=== PATIENT | male | born 1985 | race Caucasian/White ===

== ENCOUNTER 2017-08-05 22:00 | Emergency (ER) | payer MEDICAID ==
[~2017-08-05] VITALS: Ht 170.2 cm; Wt 83.9 kg
[~2017-08-05 22:00] MED LIST: BACTRIM DS 8001 TAB PO; BACTROBAN2% TP; CELEXA40 MG; FLEXERIL10 MG PO; FLOMAX 0.4MG C0.4 MG PO; HYDROCODONE/ACE1 TA5 PO; HYDROXYZINE50 MG PO; IBU-8800 MG PO; IBU800 M1 PO; IBUPROFEN800 MG PO; KEFLEX 500MG.500 MG PO; LAMICTAL100 MG PO; LORTAB 5/500 501 TAB PO; MEDROL 4MG. DOSE4 MG PO; NAPROSYN 500MG500 MG PO; NOMEDS *; PERCOCET 5/3251 EACH PO; PHENERGAN 25MG.25 M1 PO; SULFAMETHOXAZOL1 TA6 PO; TRAZODONE50 MG PO; TYLENOL W/CODEI1 TA2 PO; VICODIN 5/500 T1 TAB PO; [UNRECOGNIZED DRUG - REMARK] PO
--- OUTSIDE RECORDS SUMMARY | 2017-08-05 22:23 | External Medical Summary Rpt | CCD ---
Author Author AMBER Address Unknown Phone [email or web address] Purpose Continuity of Care Document - through 2016
--- OUTSIDE RECORDS SUMMARY | 2017-08-05 22:23 | External Medical Summary Rpt | CCD ---
Author Author AMBER Address Unknown Phone Purpose Continuity of Care Document - through 2016
--- OUTSIDE RECORDS SUMMARY | 2017-08-05 22:24 | External Medical Summary Rpt | CCD ---
Author Author [employer] Organization [employer] Address Unknown Phone Unavailable Purpose Continuity of Care Document - through 2016
--- OUTSIDE RECORDS SUMMARY | 2017-08-05 22:25 | External Medical Summary Rpt | CCD ---
Demographics Preferred Language Hungarian Marital Status Unknown Mandaeism Affiliation Unknown Race Unknown Ethnic Group Unknown Author Author , AMBER CLARK Address Unknown Phone Immunization Unable to retrieve immunization data due to connection failure with Immunization Registry. Please try again later.
--- OUTSIDE RECORDS SUMMARY | 2017-08-05 22:25 | External Medical Summary Rpt | CCD ---
Demographics Preferred Language Indonesian Marital Status Unknown Muslim Affiliation Unknown Race Unknown Ethnic Group Unknown Author Author , AMBER CLARK Address Unknown Phone Immunization Unable to retrieve immunization data due to connection failure with Immunization Registry. Please try again later.
--- OUTSIDE RECORDS SUMMARY | 2017-08-05 22:25 | External Medical Summary Rpt ---
Author Author AMBER Mendoza, [employer] Organization [employer] Address Unknown Phone Unavailable
--- NOTE | 2017-08-05 23:06 | Emergency Room Report ---
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 N Clinical Suspician of Infection? N Mental Status: 1 - Regular (Normal Baseline) Sepsis Risk:Low Sepsis Risk Have you (or family members/close friends) recently traveled outside the [place]? N If Yes, where/when: Have you had exposure to infectious disease within the past month? N TB? Other? Specify: Source patient, RN notes reviewed, family, old records Exam Limitations no limitations Comment fb rt index finger since last pm Cardiac Chest Pain Chest pain indicative of cardiac No Timing/Duration this evening Severity moderate ALLERGIES Coded Allergies: No Known Allergies (04/10/17) Home Medications Active Scripts Ibuprofen (Ibuprofen 800MG) 800 MG PO QIDP PRN pain #30 TAB Prov: 04/10/17 History Medical History General CAD? No Angina: No [place]: No Hypertension? No Hyperlipidemia? No CHF? No DVT? No PE? No COPD? No Asthma? No Anemia? No GERD? No Gastric ulcers? No GI Bleed? No Hernia? No Thyroid Problems? No Hypothyroidism? No CVA? No Seizures? No Diabetes? No Insulin Dependent: No Insulin Pump: No Home FSBS? No Renal Insuffiency? No End Stage Renal Disease? No UTI? No Stones? No BPH? No GB Disease: No Nephritic Syndrome? No Asplenia? No Hepatitis? No Sickle Cell Disease? No Arthritis? No Migraines? No Cataracts? No Glaucoma? No MRSA? No HIV? No TB? No Anxiety? No Depression? No Cancer? No More? Yes Additional hx: KIDNEY STONES Immunization Hx DT/Tetanus 04/2010 Surgical Hx Previous Surgery?Y JAW SURGERY R EAR Social History Smoking Hx Smoker: Current Every Day Smoker Tobacco: Yes Type Cigarettes Packs/day 1 1/2 - 2 Packs Are you/the child exposed to second-hand smoke: Yes Alcohol Alcohol: Yes Drugs none Review of Systems All Other Systems Reviewed and Negative Constitutional denies fever Eyes denies drainage ENT denies: ear pain, epistaxis, throat pain. Respiratory denies cough, denies shortness of breath, denies wheezing Cardiovascular denies chest pain, denies syncope Gastrointestinal denies diarrhea Genitourinary denies: dysuria, frequency. Musculoskeletal see HPI, denies back pain, denies joint pain, denies joint swelling, denies neck pain, other Skin see HPI, denies rash, other Psychiatric/Neurological denies headache, denies seizure Physical Exam Vital Signs Vital Signs Date Time Temp Pulse Resp B/P Pulse O2 O2 Flow FiO2 Ox Delivery Rate 08/057 98.1 71 18 110/77 96 - WBC >12,000 or <4,000 or 10% bands? 2 or more SIRS Criteria Met? B/P:110/77 MAP:88 Creatinine >2.0? UA output<0.5ml/kg/hr for 2 hrs? Platelet count >100,000? Lactate >2.0mmol/1? INR >1.2 or PTT > than 60 sec? Evidence of Organ Dysfunction? Provider documented clinical suspician of infection? N Sepsis Criteria Count: 0 Sepsis Risk: Low Sepsis Risk General Appearance no apparent distress Eye Exam - bilateral eye PERRL, bilateral eye EOMI Ear, Nose, Throat normal ENT inspection Neck supple Respiratory Status No: respiratory distress. 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 No Results/Orders Current Medication Orders Sig/Nick Start time Last Medication Dose Route Stop Time Status Admin Acetaminophen/ 0 .STK-MED ONE 08/05 2353 DC Codeine Phosphate PO Cephalexin 0 .STK-MED ONE 08/05 2353 DC Monohydrate PO Multi-Ingredient 0 .STK-MED ONE 08/05 2349 DC Ointment TP Acetaminophen/ 1 TONY ONCE ONE 08/05 2345 DC Codeine Phosphate PO 08/05 2346 Cephalexin 500 MG ONCE ONE 08/05 2345 DC Monohydrate PO 08/05 2346 Diphtheria/Pertussis/ 0.5 ML ONCE ONE 08/05 2345 DC Tetanus Vacc IM 11/04 2346 Lidocaine HCl 0 .STK-MED ONE 08/05 2309 DC .ROUTE Orders Procedure Date/time Status [id number] (INDEX)-3 VIEWS 08/05 2246 Active XRAY/CT/US XRAY/CT/US XRAY finger(s) XR interpretation by reviewed by me Xray Results abnormal (fb seen ) Procedures FB Removal (excluding Eyes) FB Removal Risks/benefits discussed with pt/guardian? Yes Location/Suspected object finger/metal Anesthesia Lidocaine 1% (digital block 4 ml) Foreign Body (Not Eyes) Remove Simple, Sterile dressing applied. No: Complicated, Probing, Incision & Search, Cerumen spatula used, Irrigation ml-. Risk of retained FB explained to pt/guardian? Yes Progress closed with 1 4o nylon stitch Departure Departure Time of Disposition 2351 Disposition DC Home or Self Care(routine) Clinical Impression Primary Impression: Foreign body Condition STABLE Referrals DENNYS CROOKS (Family) Patient Instructions DI for Laceration Repair Additional Instructions suture out in 7 days and recheck if any problems Discharge Counseling Counseled pt/family regarding diagnosis, test results, medications/RX, follow up needs Prescriptions Current Visit Scripts CEPHALEXIN (Keflex 500MG Capsule) 500 MG PO Q8H #21 CAP ED Critical Care Critical Care No at 2350
--- NOTE | 2017-08-05 23:06 | Emergency Room Report ---
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 N Clinical Suspician of Infection? N Mental Status: 1 - Regular (Normal Baseline) Sepsis Risk:Low Sepsis Risk Have you (or family members/close friends) recently traveled outside the [place]? N If Yes, where/when: Have you had exposure to infectious disease within the past month? N TB? Other? Specify: Source patient, RN notes reviewed, family, old records Exam Limitations no limitations Comment fb rt index finger since last pm Cardiac Chest Pain Chest pain indicative of cardiac No Timing/Duration this evening Severity moderate ALLERGIES Coded Allergies: No Known Allergies (04/10/17) Home Medications Active Scripts Ibuprofen (Ibuprofen 800MG) 800 MG PO QIDP PRN pain #30 TAB Prov: 04/10/17 History Medical History General CAD? No Angina: No [place]: No Hypertension? No Hyperlipidemia? No CHF? No DVT? No PE? No COPD? No Asthma? No Anemia? No GERD? No Gastric ulcers? No GI Bleed? No Hernia? No Thyroid Problems? No Hypothyroidism? No CVA? No Seizures? No Diabetes? No Insulin Dependent: No Insulin Pump: No Home FSBS? No Renal Insuffiency? No End Stage Renal Disease? No UTI? No Stones? No BPH? No GB Disease: No Nephritic Syndrome? No Asplenia? No Hepatitis? No Sickle Cell Disease? No Arthritis? No Migraines? No Cataracts? No Glaucoma? No MRSA? No HIV? No TB? No Anxiety? No Depression? No Cancer? No More? Yes Additional hx: KIDNEY STONES Immunization Hx DT/Tetanus 04/2010 Surgical Hx Previous Surgery?Y JAW SURGERY R EAR Social History Smoking Hx Smoker: Current Every Day Smoker Tobacco: Yes Type Cigarettes Packs/day 1 1/2 - 2 Packs Are you/the child exposed to second-hand smoke: Yes Alcohol Alcohol: Yes Drugs none Review of Systems All Other Systems Reviewed and Negative Constitutional denies fever Eyes denies drainage ENT denies: ear pain, epistaxis, throat pain. Respiratory denies cough, denies shortness of breath, denies wheezing Cardiovascular denies chest pain, denies syncope Gastrointestinal denies diarrhea Genitourinary denies: dysuria, frequency. Musculoskeletal see HPI, denies back pain, denies joint pain, denies joint swelling, denies neck pain, other Skin see HPI, denies rash, other Psychiatric/Neurological denies headache, denies seizure Physical Exam Vital Signs Vital Signs Date Time Temp Pulse Resp B/P Pulse O2 O2 Flow FiO2 Ox Delivery Rate 08/057 98.1 71 18 110/77 96 - WBC >12,000 or <4,000 or 10% bands? 2 or more SIRS Criteria Met? B/P:110/77 MAP:88 Creatinine >2.0? UA output<0.5ml/kg/hr for 2 hrs? Platelet count >100,000? Lactate >2.0mmol/1? INR >1.2 or PTT > than 60 sec? Evidence of Organ Dysfunction? Provider documented clinical suspician of infection? N Sepsis Criteria Count: 0 Sepsis Risk: Low Sepsis Risk General Appearance no apparent distress Eye Exam - bilateral eye PERRL, bilateral eye EOMI Ear, Nose, Throat normal ENT inspection Neck supple Respiratory Status No: respiratory distress. 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 No Results/Orders Current Medication Orders Sig/Nick Start time Last Medication Dose Route Stop Time Status Admin Acetaminophen/ 0 .STK-MED ONE 08/05 2353 DC Codeine Phosphate PO Cephalexin 0 .STK-MED ONE 08/05 2353 DC Monohydrate PO Multi-Ingredient 0 .STK-MED ONE 08/05 2349 DC Ointment TP Acetaminophen/ 1 TONY ONCE ONE 08/05 2345 DC Codeine Phosphate PO 08/05 2346 Cephalexin 500 MG ONCE ONE 08/05 2345 DC Monohydrate PO 08/05 2346 Diphtheria/Pertussis/ 0.5 ML ONCE ONE 08/05 2345 DC Tetanus Vacc IM 11/04 2346 Lidocaine HCl 0 .STK-MED ONE 08/05 2309 DC .ROUTE Orders Procedure Date/time Status [id number] (INDEX)-3 VIEWS 08/05 2246 Active XRAY/CT/US XRAY/CT/US XRAY finger(s) XR interpretation by reviewed by me Xray Results abnormal (fb seen ) Procedures FB Removal (excluding Eyes) FB Removal Risks/benefits discussed with pt/guardian? Yes Location/Suspected object finger/metal Anesthesia Lidocaine 1% (digital block 4 ml) Foreign Body (Not Eyes) Remove Simple, Sterile dressing applied. No: Complicated, Probing, Incision & Search, Cerumen spatula used, Irrigation ml-. Risk of retained FB explained to pt/guardian? Yes Progress closed with 1 4o nylon stitch Departure Departure Time of Disposition 2351 Disposition DC Home or Self Care(routine) Clinical Impression Primary Impression: Foreign body Condition STABLE Referrals DENNYS CROOKS (Family) Patient Instructions DI for Laceration Repair Additional Instructions suture out in 7 days and recheck if any problems Discharge Counseling Counseled pt/family regarding diagnosis, test results, medications/RX, follow up needs Prescriptions Current Visit Scripts CEPHALEXIN (Keflex 500MG Capsule) 500 MG PO Q8H #21 CAP ED Critical Care Critical Care No at 2350
[2017-08-05] MEDS ORDERED: KEFLEX 500MG.500 MG PO (23:54)
[2017-08-06 00:10] VITALS: BP 159/76
--- NOTE | 2017-08-06 20:56 | RADIOLOGY REPORT PS360 ---
[id number] (INDEX)-3 VIEWS HISTORY: INJURY . Foreign body injury Patient Age: 31 years: Male Ordering Physician: Karlie Camp MD TECHNIQUE: 3 views right index finger COMPARISON : FINDINGS Linear Metallic foreign body fragment is seen at the radial aspect of the tip of distal index finger. This fragment measures up to 5 mm length x 1.2 mm thickness lateral view. Underlying bone is intact this fragment resides just lateral and posterior to the bone but does not touch it on the frontal projection The osseous structures otherwise intact joint space is maintained. Mild swelling finger suggested. IMPRESSION: Radiopaque foreign body at lateral aspect distal index finger
== END 2017-08-06 00:10 | disposition home or self-care (01) ==
LOC: ER 22:00
PROC: 0HCFXZZ Extirpation of Matter from Right Hand Skin, External Approach (ICD-10-PCS; principal; 2017-08-05)
DX: S60.450A Superficial foreign body of right index finger, initial encounter (principal)